=== PATIENT | male | born 1990 | race African-American/Black ===

== ENCOUNTER 2023-06-22 20:51 | Emergency (ER) | payer OTHER, SELFPAY ==
[2023-06-22 20:58] VITALS: BP 138/84; PULSE 81; O2SAT 98; BMI 25.1
--- NOTE | 2023-06-22 21:10 | US_ITS ---
The [address] [address] Patient Name: CHAPARRO SANDOVAL MRN: [id number] date: 1990 Sex: M Assigned Patient Location: ER Current Patient Location: ED.MAIN Accession/Order Number: [id number] Exam Date: 06/22/2023 21:15 Report Date: 06/22/2023 22:26 At the request of: ANIYAH MONTES DE OCA Procedure: US venous doppler LE RT EXAM: DVT Ultrasound TECHNIQUE: Color doppler and jarvis-scale imaging of the right lower extremity was performed. COMPARISON: None. FINDINGS: There is normal flow, compressibility, respiratory variation, and augmentation of the right common femoral vein, superficial femoral vein, and popliteal vein. No evidence of intraluminal thrombus. Normal flow and compressibility of the peroneal and posterior tibial veins. US/US venous doppler LE RT IMPRESSION: No DVT in the right lower extremity. Electronically authenticated by: ZOFIA RAMIREZ Date: 06/22/2023 22:26
--- NOTE | 2023-06-22 21:11 | ECG_ITS ---
The [facility] Test Date: 2023-06-22 Pat Name: CHAPARRO SANDOVAL Department: Room: - Gender: Male Staff Physical Therapist: : 1990 Requested By: [id number] Order Number: [id number] Reading MD: MARIA LUISA WELLS Measurements Intervals [place] Rate: 85 P: 80 MA: 140 QRS: 82 QRSD: 86 T: 12 QT: 364 QTc: 406 Interpretive Statements 1100 Sinus rhythm 4068 Nonspecific [place] abnormality 9130 borderline ECG No previous ECG available for comparison Electronically Signed On 06-22-2023 23:09:40 EDT by MARIA LUISA WELLS
--- NOTE | 2023-06-22 21:18 | ED.GENADUL1 ---
HPI HPI - General Adult General Chief complaint: Arrhythmia/Palpitations Stated complaint: Chest pain Time Seen by Provider: 06/22/23 20:55 Source: patient and family Mode of arrival: walk-in History of Present Illness HPI narrative: This 33-year-old male who is visiting locally from [place] and has a history of deep vein thromboses and PEs and is on Eliquis presents for evaluation of 2 days of generalized illness. He admits that he has been drinking heavily for the past several days. He and his are visiting locally for a wedding. Yesterday he started feeling unwell and today had 2 episodes of vomiting and chills. He went to an infusion center in [facility] and had IV fluids and Zofran. He states he still feels nauseated. He is also concerned that he has a deep vein thrombosis in his right lower extremity because he is having cramps in his legs. He states he feels dizzy and shaky with palpitations. He has not had any cristal chest pain dizziness or syncope. He denies any cristal abdominal pain or diarrhea. He does admit that he thinks that he missed a dose of his Eliquis yesterday. Related Data Home Medications ?Medication ?Instructions ?Recorded ?Confirmed apixaban 2.5 mg tablet (Eliquis) 2.5 mg PO BID 06/22/23 06/22/23 omeprazole 40 mg capsule,delayed 40 mg PO DAILY 06/22/23 06/22/23 release Allergies Allergy/AdvReac Type Severity Reaction Status Date / Time No Known Drug Allergies Allergy Verified 06/22/23 21:12 Opioid HPI Opioid Management Most Recent Opioid Data: No Data to Display Review of Systems ROS Status of ROS 10 or more systems reviewed and unremarkable except as noted in history and below [facility] Medical History (Updated 06/22/23 @ 22:35 by Julianne Major MD) GERD (gastroesophageal reflux disease) ?K21.9 - Gastro-esophageal reflux disease without esophagitis (ICD-10) Pulmonary embolism ?I26.99 - Other pulmonary embolism without acute cor pulmonale (ICD-10) Exam Narrative Exam Narrative: Nurses note and vital signs reviewed and patient is not hypoxic. Patient noted to become tachycardic with standing General: Alert, well-appearing -Citizen Of [place] male, no respiratory distress, no active vomiting Skin: Warm, dry, no pallor noted. There is no rash noted. Head: Normocephalic, atraumatic Eye: Normal conjunctiva, no drainage, EOMI. PERRL Ears, Nose, Mouth, and Throat: oral mucosa is moist. Cardiovascular: Regular Rate and Rhythm S1S2, Pulses are brisk and equal bilaterally, patient has a resting pulse in the 80s but pulse increases to 106 upon standing Respiratory: Patient is in no distress, no accessory muscle use, lungs are clear to auscultation, no wheezing, rales or rhonchi Back: non-tender, no CVA tenderness bilaterally to percussion. GI: Normal bowel sounds, no tenderness to palpation, no masses appreciated. No rebound, guarding, or rigidity noted. Musculoskeletal: The patient has no evidence of calf tenderness, Calf sizes are equal, there is no palpable cords, redness induration or other notable abnormality. Pulses in the lower extremities are brisk and equal bilaterally Neurological: A&O x4, normal speech Psychiatric: Cooperative Constitutional Vital Signs, click to edit/add: Last Vital Signs Pulse 81 06/22/23 20:58 Resp 18 06/22/23 20:58 BP 138/84 06/22/23 20:58 Pulse Ox 98 06/22/23 20:58 O2 Del Method Room Air 06/22/23 20:58 Course Vital Signs Vital signs: Vital Signs Pulse Rate 81 06/22/23 20:58 Respiratory Rate 18 06/22/23 20:58 Blood Pressure 138/84 06/22/23 20:58 Pulse Oximetry 98 06/22/23 20:58 Oxygen Delivery Method Room Air 06/22/23 20:58 Pulse Rate 81 06/22/23 20:58 Respiratory Rate 18 06/22/23 20:58 Blood Pressure 138/84 06/22/23 20:58 Pulse Oximetry 98 06/22/23 20:58 Oxygen Delivery Method Room Air 06/22/23 20:58 Medical Decision Making MDM Narrative Medical decision making narrative: This 34-year-old male with a history of deep vein thrombosis PE who is on Eliquis is visiting from [facility] presents for evaluation pain in his right calf, nausea vomiting or palpitations. He has been having any chest pain. He does not smoke. He admits that he was recently been drinking for the past several days more heavily than he typically drinks. He did go to infusion clinic in [place] earlier today and IV fluids. The patient's physical exam is benign. His vital signs are stable. His calfs are equal in size without any sign of acute, lungs are clear, abdomen is soft. He was still nauseated to a certain extent. EKG done upon arrival is a sinus rhythm at 85 beats for minute with a normal axis and no acute changes. An IV was placed medicated with IV fluids, Zofran and Pepcid. Ultrasound of the right lower extremity was reviewed by radiology and is negative for deep vein thrombosis. He also has a normal d-dimer. Normal troponin. Electrolytes are normal with the exception of a mildly low magnesium. The results of his labs were discussed with him. He feels comfortable being discharged home at this time and is tolerating Gatorade and saltine crackers. I suggested he abstain from alcohol for the next several days and will be given a prescription for Zofran to use as needed for ongoing nausea or vomiting. Medical Records Medical records narrative: The [address] [address] Ultrasound Report Signed Patient: CHAPARRO SANDOVAL MR#: [id number] : 1990 Acct:[id number] Age/Sex: 33 / M ADM Date: 06/22/23 Loc: ER Attending Dr: Ordering Physician: Julianne Major Date of Service: 06/22/23 Procedure(s): US venous doppler LE RT Accession Number(s): [id number] cc: Julianne Major; Physician,Non-Staff M.D.~ The [address] [address] Patient Name: CHAPARRO SANDOVAL MRN: [id number] date: 1990 Sex: M Assigned Patient Location: ER Current Patient Location: ED.MAIN Accession/Order Number: [id number] Exam Date: 06/22/2023 21:15 Report Date: 06/22/2023 22:26 At the request of: JULIANNE MAJOR Procedure: US venous doppler LE RT EXAM: DVT Ultrasound TECHNIQUE: Color doppler and jarvis-scale imaging of the right lower extremity was performed. COMPARISON: None. FINDINGS: There is normal flow, compressibility, respiratory variation, and augmentation of the right common femoral vein, superficial femoral vein, and popliteal vein. No evidence of intraluminal thrombus. Normal flow and compressibility of the peroneal and posterior tibial veins. US/US venous doppler LE RT IMPRESSION: No DVT in the right lower extremity. Electronically authenticated by: ZOFIA RAMIREZ Date: 06/22/2023 22:26 Lab Data Labs: Lab Results 06/22/23 Range/Units 21:48 WBC 4.6 (4.0-11.0) 10^3/uL RBC 5.01 (4.70-6.10) 10^6/uL Hgb 13.9 L (14.0-18.0) g/dL Hct 41.8 L (42.0-54.0) % MCV 83.4 (80.0-94.0) fL MCH 27.7 (25.9-34.0) pg MCHC 33.3 (29.9-35.2) g/dL RDW 14.5 (11.0-15.0) % Plt Count 264 (150-450) 10^3/uL MPV 8.9 L (9.5-13.5) fL Neut % (Auto) 56.4 (43.0-75.0) % Lymph % (Auto) 32.5 (20.5-60.0) % [place] % (Auto) 10.7 (1.7-12.0) % Eos % (Auto) 0.2 L (0.9-7.0) % Baso % (Auto) 0.2 (0.2-2.0) % Neut # (Auto) 2.6 (1.4-6.5) 10^3/uL Lymph # (Auto) 1.5 (1.2-3.8) 10^3/uL [place] # (Auto) 0.5 (0.3-0.8) 10^3/uL Eos # (Auto) 0.0 (0.0-0.7) 10^3/uL Baso # (Auto) 0.0 (0.0-0.1) 10^3/uL Abs Immat Gran (auto) 0.00 (0.00-0.03) 10^3/uL Imm/Tot Granulo (auto) 0.0 (0.0-0.5) % D-Dimer <0.19 (<=0.59) mg/L FEU Sodium 139 (136-145) mmol/L Potassium 3.7 (3.5-5.1) mmol/L Chloride 101 (98-107) mmol/L Carbon Dioxide 27.2 (21.0-32.0) mmol/L Anion Gap 14.5 BUN 6.0 L (7.0-18.0) mg/dL Creatinine 1.29 (0.70-1.30) mg/dL Est GFR ( Amer) >60 (>=60) Est GFR (Non-Af Amer) >60 (>=60) BUN/Creatinine Ratio 4.7 Glucose 102 (74-106) mg/dL Calcium 9.3 (8.5-10.1) mg/dL Magnesium 1.5 L (1.8-2.4) mg/dL Total Bilirubin 0.8 (0.2-1.0) mg/dL AST 35 (15-37) U/L ALT 32 (16-63) U/L Alkaline Phosphatase 69 (46-116) U/L Troponin I High Sens 4.3 (4.0-76.1) pg/mL Total Protein 7.5 (6.4-8.2) g/dL Albumin 4.0 (3.4-5.0) g/dL Globulin 3.5 g/dL Albumin/Globulin Ratio 1.1 ECG Data Attestation: I personally reviewed and interpreted this ECG as follows: (Sinus rhythm at 85 beats for minute, normal axis, nonspecific ST changes, no acute ST segment elevation or T-wave inversions) Discharge Plan Discharge Stand Alone Forms: Portal Instructions Chief Complaint: Arrhythmia/Palpitations Clinical Impression: Palpitations, Nausea & vomiting Patient Disposition: Home, Self-Care Time of Disposition Decision: 22:35 Condition: Good Prescriptions / Home Meds: No Action Eliquis 2.5 mg tablet 2.5 mg PO BID omeprazole 40 mg capsule,delayed release(DR/EC) 40 mg PO DAILY Print Language: [place] Instructions: Heart Palpitations (ED), Acute Nausea and Vomiting (ED) Referrals: Physician,Non-Staff, MD [Primary Care Provider] - 1 week
[2023-06-22] MEDS: 0.9 % SODIUM CHLORIDE 1,000 ML 1000 ML IV (21:50)
[2023-06-22] MEDS: FAMOTIDINE/PF 20 MG/2 ML VIAL IV (21:51)
[2023-06-22] MEDS: ONDANSETRON PF 4 MG/2 ML VIAL IV (21:51)
[2023-06-22 21:55] LABS: Basophils Percent Auto 0.2 % (0.2-2.0); Eosinophils Percent Auto 0.2 % (0.9-7.0); Hematocrit 41.8 % (42.0-54.0); Hemoglobin 13.9 g/dL (14.0-18.0); Lymphocytes Absolute Auto 1.5 10^3/uL (1.2-3.8); Lymphocytes Percent Auto 32.5 % (20.5-60.0); Mean Corpuscular HGB Conc 33.3 g/dL (29.9-35.2); Mean Corpuscular Hemoglobin 27.7 pg (25.9-34.0); Mean Corpuscular Volume 83.4 fL (80.0-94.0); Mean Platelet Volume 8.9 fL (9.5-13.5); Monocytes Absolute Auto 0.5 10^3/uL (0.3-0.8); Monocytes Percent Auto 10.7 % (1.7-12.0); Neutrophils Absolute Auto 2.6 10^3/uL (1.4-6.5); Neutrophils Percent Auto 56.4 % (43.0-75.0); Platelet Count 264 10^3/uL (150-450); Red Blood Count 5.01 10^6/uL (4.70-6.10); Red Cell Distribution Width 14.5 % (11.0-15.0); White Blood Count 4.6 10^3/uL (4.0-11.0)
[2023-06-22 22:06] LABS: Magnesium 1.5 mg/dL (1.8-2.4)
[2023-06-22 22:12] LABS: Alanine Aminotransferase 32 U/L (16-63); Albumin Globulin Ratio 1.1; Alkaline Phosphatase 69 U/L (46-116); Anion Gap 14.5; Aspartate Amino Transferase 35 U/L (15-37); BUN Creatinine Ratio 4.7; Bilirubin Total 0.8 mg/dL (0.2-1.0); Calcium 9.3 mg/dL (8.5-10.1); Carbon Dioxide 27.2 mmol/L (21.0-32.0); Chloride 101 mmol/L (98-107); D Dimer <0.19 mg/L FEU (<=0.59); Estimated GFR (African America >60 (>=60); Estimated GFR (Non-African Ame >60 (>=60); Globulin 3.5 g/dL; Glucose 102 mg/dL (74-106); Potassium 3.7 mmol/L (3.5-5.1); Sodium 139 mmol/L (136-145); Total Protein 7.5 g/dL (6.4-8.2)
[2023-06-22 22:16] LABS: Troponin I High Sensitivity 4.3 pg/mL (4.0-76.1)
[2023-06-22 22:43] VITALS: BP 138/84; PULSE 90; O2SAT 99
== END 2023-06-22 22:48 | disposition home or self-care (01) ==
PROVIDERS: Emergency Provider Emergency Medicine
DX: R00.2 Palpitations (principal); R11.2 Nausea with vomiting, unspecified; Z86.718 Personal history of other venous thrombosis and embolism; Z86.711 Personal history of pulmonary embolism; Z79.01 Long term (current) use of anticoagulants; Z79.899 Other long term (current) drug therapy; K21.9 Gastro-esophageal reflux disease without esophagitis
CPT/HCPCS: 0202U; 36415; 80053; 83735; 84484; 85025; 85378; 93005; 93971; 96361; 96374; 96375; 99285